=== PATIENT | female | born 1995 | race American Indian/Alaskan Native ===

== ENCOUNTER 2020-11-22 15:21 | Emergency (ER) | payer BC, MEDICAID ==
--- NOTE | 2020-11-22 15:28 | Event Note ---
ED Screening Note ED Screening Note: covid pos 11/15 on flagyl for bv/trich co sob This initial assessment/diagnostic orders/clinical plan/treatment(s) is/are subject to change based on patients health status, clinical progression and re- assessment by fellow clinical providers in the ED. Further treatment and workup at subsequent clinical providers discretion. Patient/guardian urged not to elope from the ED as their condition may be serious if not clinically assessed and managed. Initial orders include: xray ro pna
[2020-11-22 15:30] VITALS: BP 123/68
--- NOTE | 2020-11-22 16:01 | XRay Report ---
LT Chest 2 negative Signer Name: Jonas Suazo MD Signed: 11/22/2020 3:56 PM Workstation Name: [id number]
--- NOTE | 2020-11-22 16:08 | Emergency Department Report ---
Minor Respiratory - HPI Chief Complaint: Dyspnea/Respdistress Stated Complaint: COVID POS/CHEST PAIN/SOB Time Seen by Provider: 11/22/20 15:27 Pain Location: Chest Severity: moderate Minor Respiratory: Yes Able to Tolerate Fluids, Yes Cough, Yes Shortness of Breath, No Rhinorrhea, No Sore Throat, No Ear Pain, No Sick Contacts, No Hemoptysis, No Chest Pain, No Fever Other History: 25 YO AA FEMALE DX W COVID ON 11/15. CO SOB. WHICH SCARED HER SO SHE CAME TO ER. NO CP. NO FEVER OR CHILLS. IS ON FLAGYL FOR HER BV. 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 VSS. AMBULTORY. NON ILL APPEARING ON EXAM ED Review of Systems ROS: Stated complaint: COVID POS/CHEST PAIN/SOB Other details as noted in HPI Comment: All other systems reviewed and negative ED Past Medical Hx - Past Medical History Previous Medical History?: No - Surgical History Past Surgical History?: No - Family History Family history: no significant - Social History Smoking Status: Never Smoker Substance Use Type: None - Medications Home Medications: Home Medications Medication Instructions Recorded Confirmed Last Taken Type Albuterol Mdi (or & Nicu Only) 2 puff IH QID PRN #1 inhalation 11/22/20 Unknown Rx [ProAir HFA Inhaler] Benzonatate [Tessalon Perles] 100 mg PO Q8HR PRN #12 capsule 11/22/20 Unknown Rx Guaifen/Phenyleph/Acetaminophn 10 ml PO Q8H PRN #180 ml 11/22/20 Unknown Rx [Mucinex Fast-Max Congst-Millard Liq] Ondansetron [Zofran Oral Liq] 4 mg PO ONCE #12 dose 11/22/20 Unknown Rx Minor Respiratory Exam - Exam General: Vital signs noted. No distress. Alert and acting appropriately. HEENT: Yes Moist Mucous Membranes, No Pharyngeal Erythema, No Pharyngeal Exudates, No Rhinorrhea, No Conjuctival Injection, No Frontal Tenderness, No Maxillary Tenderness Ear: Neither TM Bulge, Neither TM Erythema, Neither EAC Pain, Neither EAC Discharge Neck: Yes Supple, No Adenopathy Lungs: Yes Good Air Exchange, No Wheezes, No Ronchi, No Stridor, No Cough, No Labored Respirations, No Retractions, No Use of Accessory Muscles, No Other Abnormal Lung Sounds Heart: Yes Regular, No Murmur Abdomen: Yes Normal Bowel Sounds, No Tenderness, No Peritoneal Signs Skin: No Rash, No Edema Neurologic: Alert and oriented, no deficits. Musculoskeletal: Unremarkable. ED Course Vital Signs 11/22/20 15:29 Temperature 98.6 F Pulse Rate 78 Respiratory 22 Rate Blood Pressure 123/68 [Right] O2 Sat by Pulse 96 Oximetry ED Medical Decision Making - Radiology Data Radiology results: report reviewed, image reviewed NAP - Medical Decision Making XRAY NOTED PT EDUCATED ON COVID AND CARE AND MANAGEMENT DC HOME WITH DC POC INCLUDING S/S TREATMENT AND FOLLOW UP WITH PCP SHE VERBALIZES UNDERSTANDING OF THE PLAN OF CARE. Vital Signs 11/22/20 15:29 Temperature 98.6 F Pulse Rate 78 Respiratory 22 Rate Blood Pressure 123/68 [Right] O2 Sat by Pulse 96 Oximetry - Differential Diagnosis RO PNA Critical care attestation.: If time is entered above; I have spent that time in minutes in the direct care of this critically ill patient, excluding procedure time. ED Disposition Clinical Impression: COVID-19 Disposition: DC-01 TO HOME OR SELFCARE Is pt being admited?: No Does the pt Need Aspirin: No Condition: Stable Instructions: COVID-19 Frequently Asked Questions, COVID-19, COVID-19: How to Protect Yourself and Others - CDC, Prevent the Spread of COVID-19 if You Are Sick - [facility] Additional Instructions: MEDS ORDERED TODAY FOLLOW UP PCP NEXT WEEK IF YOU DONT FEEL BETTER REFERRAL BELOW Prescriptions: Guaifen/Phenyleph/Acetaminophn [Mucinex Fast-Max Congst-Millard Liq] 10 ml PO Q8H PRN #180 ml PRN Reason: Nasal Congestion Albuterol Mdi (or & Nicu Only) [ProAir HFA Inhaler] 2 puff IH QID PRN #1 inhalation PRN Reason: Shortness Of Breath Benzonatate [Tessalon Perles] 100 mg PO Q8HR PRN #12 capsule PRN Reason: Cough Ondansetron [Zofran Oral Liq] 4 mg PO ONCE #12 dose Referrals: LYSSA STEINER MD [Staff Physician] - 3-5 Days Time of Disposition: 16:02
== END 2020-11-22 16:10 | disposition home or self-care (01) ==
LOC: ED 15:21
DX: U07.1 COVID-19 (principal); Z79.899 Other long term (current) drug therapy
CPT/HCPCS: 71046